=== PATIENT | female | born 1990 | race Caucasian/White ===

== ENCOUNTER 2019-11-17 08:45 | Outpatient (CLI) | payer OTHER ==
--- NOTE | 2019-11-17 10:17 | ULT ---
GALLBLADDER ULTRASOUND: Date: 11/17/2019 HISTORY: Abdominal pain, right upper quadrant pain. FINDINGS: The liver, pancreas, and right kidney are normal. Multiple shadowing mobile gallstones are seen witho ut gallbladder wall thickening or pericholecystic fluid. The common duct measures 3.0 mm in diameter. No free fluid is seen in Morison's pouch. IMPRESSION: Cholelithiasis. POS: [facility]
== END 2019-11-17 08:46 | disposition home or self-care (01) ==
LOC: SCSULT 08:45
PROVIDERS: ATTEND Obstetrics & Gynecology
DX: R10.11 Right upper quadrant pain (principal); K80.20 Calculus of gallbladder without cholecystitis without obstruction
CPT/HCPCS: 76705

== ENCOUNTER 2019-12-05 06:42 | Outpatient (CLI) | payer OTHER ==
[2019-12-05 14:36] LABS: #Basophils 0.1 thou/uL (0.0-0.2); #Lymphocytes 2.2 thou/uL (1.20-3.40); #Monocytes 0.4 thou/uL (0.11-0.59); #Neutrophils 2.6 thou/uL (1.40-6.50); %Basophils 2.6 % (0.0-1.0); %Eosinophils 0.9 % (0.0-10.0); %Lymphocytes 40.6 % (21.0-51.0); %Monocytes 7.1 % (0.0-10.0); %Neutrophils 48.8 % (42.0-75.0); Hemoglobin 13.6 g/dL (12.0-16.0); Mean Corpuscular HGB CONC 32.8 g/dL (32.0-36.0); Mean Corpuscular Hemoglobin 29.1 pg (27.0-31.0); Mean Corpuscular Volume 88.6 fL (78.0-98.0); Mean Platelet Volume 6.9 fL (7.4-10.4); Platelet Count 316 thou/uL (130-400); RBC Distribution Width 13.2 % (11.5-14.5); Red Blood Cell (RBC) Count 4.68 mill/uL (4.20-5.40); White Blood Cell (WBC) Count 5.3 thou/uL (4.8-10.8)
[2019-12-05 14:39] LABS: BHCG - Serum Negative (NEGATIVE); Pregs Control Background? CLEAR/WHITE (CLR/WHITE); Pregs Control Bar Appear? YES (CONTROL BAR)
[2019-12-05 14:57] LABS: ALT (SGPT) 17 U/L (8-55); AST (SGOT) 15 U/L (5-34); Albumin 4.3 g/dL (3.5-5.0); Alkaline Phosphatase 70 U/L (40-110); Anion Gap 12 mmol/L (10-20); BUN (Urea Nitrogen) 8 mg/dL (7.0-18.7); Bilirubin, Direct 0.2 mg/dL (0.1-0.3); Bilirubin, Total 0.7 mg/dL (0.2-1.2); Calc. Creatinine Clearance 0 mL/min (70-130); Calcium 9.2 mg/dL (7.8-10.44); Carbon Dioxide 24 mmol/L (22-29); Chloride 108 mmol/L (98-107); Estimated GFR-MDRD 81; Glucose 93 mg/dL (70-105); Potassium 4.1 mmol/L (3.5-5.1); Protein, Total 7.5 g/dL (6.0-8.3); Sodium 140 mmol/L (136-145)
[2019-12-06 12:06] LABS: SARS-CoV-2 MS2 Positive; SARS-CoV-2 N Gene Negative; SARS-CoV-2 S Gene Negative; SARS-CoV-2 orf1ab Negative
--- NOTE | 2019-12-10 15:57 | EKG ---
Test Reason : Blood Pressure : / mmHG Vent. Rate : 065 BPM Atrial Rate : 065 BPM P-R Int : 148 ms QRS Dur : 090 ms QT Int : 422 ms P-R-T Axes : 086 079 069 degrees QTc Int : 438 ms Normal sinus rhythm with sinus arrhythmia Normal ECG No previous ECGs available Confirmed by AELX HAWTHORNE (2) on 12/10/2019 3:57:46 PM Referred By: LINDA Confirmed By:ALEX HAWTHORNE
== END 2019-12-05 06:43 | disposition home or self-care (01) ==
LOC: LABBT 06:42
PROVIDERS: ATTEND Surgery
DX: Z01.818 Encounter for other preprocedural examination (principal); Z11.59 Encounter for screening for other viral diseases; K80.20 Calculus of gallbladder without cholecystitis without obstruction
CPT/HCPCS: 80048; 80076; 84703; 85025; 87635; 93005; 93010; U0003

== ENCOUNTER 2019-12-08 08:11 | Day surgery (SDC) | payer OTHER ==
[2019-12-05 13:51] VITALS: BMI 20.1
[2019-12-08] MEDS ORDERED: Midazolam HCl 2 mg/2 ml Vial ONE (09:49)
[2019-12-08] MEDS ORDERED: Lidocaine 1% w/Epinephrine 1:100K 20 ML VIAL ONE (10:00)
[2019-12-08] MEDS ORDERED: Bupivacaine 0.25% HCL 30 ML VIAL ONE (10:00)
[2019-12-08] MEDS ORDERED: Fentanyl 100 MCG/2 ML VIAL ONE ×3 (10:12→11:46)
[2019-12-08] MEDS ORDERED: Rocuronium Bromide 10 MG/ML (10ML VIAL) ONE (11:16)
[2019-12-08] MEDS ORDERED: PROPOFOL 200 MG/20 ML VIAL ONE (11:16)
[2019-12-08] MEDS ORDERED: Ketorolac Tromethamine 30 MG/ML VIAL ONE (11:16)
[2019-12-08] MEDS ORDERED: Lidocaine 1% PF 5 ML VIAL ONE (11:16)
[2019-12-08] MEDS ORDERED: Dexamethasone 20 MG/5 ML VIAL ONE (11:16)
[2019-12-08] MEDS ORDERED: Glycopyrrolate 0.2 MG/ML 5 ML SYRINGE ONE (11:16)
[2019-12-08] MEDS ORDERED: EPHEDRINE 25 MG/5 ML SYRINGE ONE (11:16)
[2019-12-08] MEDS ORDERED: Ondansetron PF 4 MG/2 ML Vial ONE (11:16)
[2019-12-08] MEDS ORDERED: HYDROcodone/Acetaminophen 5/325 mg Tablet ONE ×2 (13:22→14:36)
--- NOTE | 2019-12-11 11:31 | OP ---
DATE OF PROCEDURE: 12/08/2019 PREOPERATIVE DIAGNOSIS: Symptomatic gallstones. POSTOPERATIVE DIAGNOSIS: Symptomatic gallstones. PROCEDURE PERFORMED: Laparoscopic cholecystectomy. ANESTHESIA: General. ESTIMATED BLOOD LOSS: Minimal. COMPLICATIONS: None. SPECIMEN: Gallbladder. FINDINGS: Chronic cholecystitis. PROCEDURE IN DETAIL: The patient was taken to the operating room and laid supine on the operating room table. After general anesthetic was obtained, the abdomen was prepped and draped in a sterile fashion. A curved incision was made below the umbilicus. Cautery was used to dissect down to the umbilical fascia. Umbilical fascia was incised and held up using a Lilibeth. The abdominal cavity was entered using a Nae clamp. Holding stitch of Vicryl was placed on each side of the fascia. Roblero trocar was placed. High-flow pneumoperitoneum was obtained. An upper midline 5 mm port and 2 right upper quadrant 5 mm ports were placed under direct camera visualization. The gallbladder was retracted from the gallbladder fossa. The peritoneum of the gallbladder was opened anteriorly and posteriorly. The critical view triangle was seen showing only the cystic duct and cystic artery branching from medial to lateral. There were no other branching structures. Two clips were placed proximally on the cystic duct and one laterally. It was cut using laparoscopic scissors. The cystic artery was taken in the same way. Electrocautery was then used to dissect the gallbladder out of the gallbladder fossa. The gallbladder was placed in an Endo catch bag and brought out through the Roblero. There was no bleeding or bile in the liver bed. The cystic duct stump and cystic artery stump were intact, without evidence of extravasation or bleeding. All port sites were infiltrated using local anesthesia. All ports were removed under camera visualization. Pneumoperitoneum was let down. The Vicryl was used to close the fascial defect below the umbilicus. All incisions were irrigated and closed using 4-0 Monocryl and Dermabond. The patient was en route to Recovery in stable condition. All instrument counts, needle counts and lap counts were correct. Job ID: [id number]
== END 2019-12-08 14:50 | disposition home or self-care (01) ==
LOC: SDC 08:11
PROVIDERS: ATTEND Surgery
PROC: 0FT44ZZ Resection of Gallbladder, Percutaneous Endoscopic Approach (ICD-10-PCS; principal; 2019-12-08)
DX: K80.10 Calculus of gallbladder with chronic cholecystitis without obstruction (principal); Z79.899 Other long term (current) drug therapy; Z88.2 Allergy status to sulfonamides
CPT/HCPCS: 88304; J0690; J1100; J1885; J2001; J2250; J2405; J2704; J3010; S0020